=== PATIENT | female | born 1975 | race Asian ===

== ENCOUNTER → 2018-05-01 | Outpatient (CLI) | payer OTHER | LOC: MC.RAD 10:40 | DX: Z12.31 Encounter for screening mammogram for malignant neoplasm of breast (principal) ==

== ENCOUNTER → 2019-10-21 | Outpatient (CLI) | payer OTHER | LOC: MC.RAD 16:25 | DX: Z12.31 Encounter for screening mammogram for malignant neoplasm of breast (principal) ==

== ENCOUNTER → 2020-12-26 | Outpatient (CLI) | payer OTHER | LOC: MC.RAD 14:04 | DX: Z12.31 Encounter for screening mammogram for malignant neoplasm of breast (principal) ==

== ENCOUNTER → 2021-10-06 | Outpatient (CLI) | payer OTHER | LOC: COL.RAD 08:27 | DX: R10.11 Right upper quadrant pain (principal); R14.0 Abdominal distension (gaseous) ==

== ENCOUNTER → 2021-10-30 | Outpatient (CLI) | payer OTHER | LOC: COL.RAD 09:51 | DX: K82.0 Obstruction of gallbladder (principal) | CPT/HCPCS: A9537; J2805 ==

== ENCOUNTER 2022-02-03 10:46 | Emergency (ER) | payer OTHER ==
[~2022-02-03] VITALS: Ht 144.8 cm; Wt 92.3 kg
[2022-02-03 10:54] VITALS: TEMP 99.7
[2022-02-03] MEDS ORDERED: ATIVAN 0.50.5 MG/TAB PO (12:03)
[2022-02-03 12:12] VITALS: BP 133/83; PULSE 72
== END 2022-02-03 12:15 | disposition home or self-care (01) ==
LOC: COL.ER 10:46
DX: F41.9 Anxiety disorder, unspecified (principal); Z28.310 Unvaccinated for COVID-19